=== PATIENT | female | born 1980 | race Caucasian/White ===

== ENCOUNTER 2020-12-31 21:16 | Emergency (ER) | payer MEDICAID, SELFPAY ==
[2020-12-31 23:19] LABS: Bilirubin Neg (Negative); Blood, Urine 250 (Negative); Clarity Clear (Clear); Glucose, Urine (Dipstick) Normal (Negative); Ketone, Urine Negative (Negative); Leukocyte 25 (Negative); Nitrite Negative (Negative); Protein, Urine (Dipstick) Negative (Neg-Trace); Urobilinogen Normal mg/dL (Less than 2)
[2020-12-31 23:25] LABS: #Basophils 0.1 10x3/uL (0.0-0.2); #Eosinphils 0.2 10x3/uL (0.0-0.5); #Monocytes 0.7 10x3/uL (0.0-1.1); #Neutrophils 5.4 10x3/uL (1.5-8.4); %Basophils 0.5 % (0.0-2.0); %Eosinophils 2.5 % (0.0-6.0); %Lymphocytes 33.9 % (18.0-47.0); %Neutrophils 55.9 % (40.0-75.0); Hemoglobin 13.5 g/dL (12.0-15.5); Mean Corpuscular HGB CONC 34.3 g/dL (32.0-36.0); Mean Corpuscular Hemoglobin 29.5 pg (27.0-33.0); Mean Corpuscular Volume 86.2 fl (81.6-98.3); Mean Platelet Volume 9.3 fl (7.4-10.4); Platelet Count 396 10x3/uL (150-450); RBC Distribution Width 12.4 % (11.5-14.5); Red Blood Cell (RBC) Count 4.57 10x6/uL (3.90-5.03); White Blood Cell (WBC) Count 9.6 10x3/uL (3.5-10.5)
[2020-12-31 23:26] LABS: Bacteria/HPF 2+ HPF (None Seen); Mucous/LPF Rare LPF (<2+); Squamous Epithelial 0-3 HPF (0-3); WBC/HPF 0-3 HPF (0-3)
== END 2021-01-01 01:25 | disposition home or self-care (01) ==
LOC: CSHERS 21:16
DX: O20.0 Threatened abortion (principal); O09.521 Supervision of elderly multigravida, first trimester; Z3A.01 Less than 8 weeks gestation of pregnancy
CPT/HCPCS: 76856; 81003; 81015; 84702; 85025; 86900; 86901; 87086

== ENCOUNTER 2022-06-26 14:15 | Outpatient (CLI) | payer OTHER | END 2022-06-26 14:16 | disposition home or self-care (01) | LOC: CSHULT 14:15 | PROVIDERS: ATTEND Family Medicine | DX: Z34.82 Encounter for supervision of other normal pregnancy, second trimester (principal); Z3A.22 22 weeks gestation of pregnancy | CPT/HCPCS: 76805 ==

== ENCOUNTER 2022-09-30 05:24 | Inpatient (IN) | payer MEDICAID, OTHER ==
[2022-09-29 12:40] LABS: Hematocrit 32.6 % (34.9-44.5); Hemoglobin 11.2 g/dL (12.0-15.5); Platelet Count 292 10x3/uL (150-450)
[2022-09-29 13:15] LABS: Syphilis Antibody Nonreactive (Nonreactive); Syphilis Antibody Index 0.08 S/CO (<1.00 Non-Reactive)
[2022-09-29 13:16] LABS: HBSAg Index 0.18 S/CO (0-0.99); Hep B Surf Ag Non-Reactive S/CO (NonReactive)
[2022-09-30] MEDS ORDERED: Bicitra 30 ML UDCUP PO PRN (05:36)
[2022-09-30] MEDS ORDERED: hydrALAZINE 20 MG/ML VIAL SLOW IVP PRN ×2 (05:36→11:44)
[2022-09-30] MEDS ORDERED: Carboprost 250 MCG/ML AMP IM PRN (05:36)
[2022-09-30] MEDS ORDERED: Ondansetron PF 4 MG/2 ML Vial IVP PRN ×3 (05:36→11:44)
[2022-09-30] MEDS ORDERED: Promethazine HCl 25 MG/ML VIAL IM PRN ×3 (05:36→11:44)
[2022-09-30] MEDS ORDERED: CEFAZOLIN 2 GM in Sodium Chloride 0.9% 100 ML IVPB SCH (05:36)
[2022-09-30] MEDS ORDERED: Diphenoxylate HCl/Atropine Tablet PO PRN (05:36)
[2022-09-30] MEDS ORDERED: Famotidine/PF 20 mg/2ml Vial SLOW IVP PRN (05:36)
[2022-09-30] MEDS ORDERED: Tranexamic Acid 1,000 MG/10 ML VIAL IVP PRN (05:36)
[2022-09-30] MEDS ORDERED: Misoprostol 200 MCG TAB PR PRN (05:36)
[2022-09-30] MEDS ORDERED: Methylergonovine 0.2 MG/ML VIAL IM PRN (05:36)
[2022-09-30] MEDS ORDERED: Lactated Ringer's 1,000 ML IV SCH (05:45)
[2022-09-30] MEDS ORDERED: NS w/ Oxytocin 30 units 500 ML IV SCH (05:45)
[2022-09-30 06:35] VITALS: BMI 24.1
[2022-09-30] MEDS ORDERED: Morphine PF 10 MG/10 ML VIAL ONE (06:58)
[2022-09-30] MEDS ORDERED: Ondansetron PF 4 MG/2 ML Vial ONE (06:59)
[2022-09-30] MEDS ORDERED: Oxytocin 10 UNITS/ML VIAL ONE ×2 (06:59→08:06)
[2022-09-30] MEDS ORDERED: Dexamethasone 4 mg/ml Vial ONE (06:59)
[2022-09-30] MEDS ORDERED: fentaNYL 50 mcg/mL 1 mL Vial ONE (06:59)
[2022-09-30] MEDS ORDERED: Phenylephrine 10 MG/ML VIAL ONE (06:59)
[2022-09-30] MEDS ORDERED: Ondansetron HCl/PF 4 MG/2 ML Vial IVP PRN (07:21)
[2022-09-30] MEDS ORDERED: Naloxone HCl 0.4 mg/ml Vial IV PRN (07:21)
[2022-09-30] MEDS ORDERED: Moisturizing Cream (Eucerin) 113 GM JAR TOP PRN (07:21)
[2022-09-30] MEDS ORDERED: Meperidine HCl/PF 25 MG/ML VIAL SLOW IVP PRN (07:21)
[2022-09-30] MEDS ORDERED: Ketorolac Tromethamine 30 MG/ML VIAL IVP PRN (07:21)
[2022-09-30] MEDS ORDERED: Naloxone HCl 0.4 mg/ml Vial IVP PRN ×2 (07:21)
[2022-09-30] MEDS ORDERED: Fentanyl 100 MCG/2 ML VIAL SLOW IVP PRN (07:21)
[2022-09-30] MEDS ORDERED: Promethazine HCl 25 MG SUPP PR PRN (07:21)
[2022-09-30] MEDS ORDERED: HYDROmorphone 2 MG/ML VIAL SLOW IVP PRN (07:21)
[2022-09-30] MEDS ORDERED: Communication Order-Pharmacy FS SCH (07:30)
[2022-09-30] MEDS ORDERED: Ketorolac Tromethamine 30 MG/ML VIAL IVP SCH ×2 (07:30→23:00)
[2022-09-30] MEDS ORDERED: Ketorolac Tromethamine 30 MG/ML VIAL ONE (10:41)
[2022-09-30] MEDS ORDERED: Bisacodyl 10 MG SUPP PR PRN (11:44)
[2022-09-30] MEDS ORDERED: Boostrix 0.5 ML (Tdap) VIAL (>/=7 yrs of age) IM ONE (11:44)
[2022-09-30] MEDS ORDERED: Lanolin Ointment 7 GM TUBE TOP PRN (11:44)
[2022-09-30] MEDS ORDERED: Docusate 100 MG CAP PO SCH (12:00)
[2022-09-30] MEDS ORDERED: Prenatal Vitamin 1 TAB PO SCH (12:00)
[2022-09-30] MEDS ORDERED: Ferrous Sulfate 325 MG TAB PO SCH (12:00)
[2022-09-30] MEDS: diphenhydrAMINE 50 MG/ML VIAL IVP PRN ×3 (12:25→21:30)
[2022-09-30] MEDS: Ketorolac Tromethamine 30 MG/ML VIAL IVP SCH (17:00)
[2022-09-30] MEDS: Ferrous Sulfate 325 MG TAB PO SCH (21:03)
[2022-09-30] MEDS: Docusate 100 MG CAP PO SCH (21:03)
[2022-10-01] MEDS: diphenhydrAMINE 25 MG CAP PO PRN ×2 (03:23→23:34)
[2022-10-01] MEDS: HYDROcodone/Acetaminophen 5/325 mg Tablet PO PRN ×5 (03:27→20:23)
[2022-10-01 03:31] LABS: Hematocrit 26.8 % (34.9-44.5); Hemoglobin 9.1 g/dL (12.0-15.5); Mean Corpuscular Hemoglobin 30.4 pg (27.0-33.0); Mean Corpuscular Volume 89.6 fl (81.6-98.3); Mean Platelet Volume 10.9 fl (7.4-10.4); Platelet Count 262 10x3/uL (150-450); RBC Distribution Width 13.3 % (11.5-14.5); Red Blood Cell (RBC) Count 2.99 10x6/uL (3.90-5.03)
[2022-10-01] MEDS: Ketorolac Tromethamine 30 MG/ML VIAL IVP SCH (04:48)
[2022-10-01] MEDS: Ibuprofen 800 MG TAB PO SCH ×3 (06:14→21:56)
[2022-10-01] MEDS: Ferrous Sulfate 325 MG TAB PO SCH ×2 (08:09→21:57)
[2022-10-01] MEDS: Docusate 100 MG CAP PO SCH ×2 (08:09→20:22)
[2022-10-01] MEDS: Prenatal Vitamin 1 TAB PO SCH (08:09)
[2022-10-01] MEDS ORDERED: Ibuprofen 800 MG TAB PO SCH (14:00)
[2022-10-01] MEDS: Simethicone Chewable 80 MG TAB PO PRN (23:34)
[2022-10-02] MEDS: HYDROcodone/Acetaminophen 5/325 mg Tablet PO PRN ×4 (03:49→20:20)
[2022-10-02] MEDS: Ibuprofen 800 MG TAB PO SCH ×3 (05:29→21:23)
[2022-10-02] MEDS: Docusate 100 MG CAP PO SCH ×2 (08:27→20:20)
[2022-10-02] MEDS: Prenatal Vitamin 1 TAB PO SCH (08:27)
[2022-10-02] MEDS: Ferrous Sulfate 325 MG TAB PO SCH ×2 (08:28→20:20)
[2022-10-02] MEDS: Simethicone Chewable 80 MG TAB PO PRN (21:23)
[2022-10-03] MEDS: Ibuprofen 800 MG TAB PO SCH (06:16)
[2022-10-03] MEDS: HYDROcodone/Acetaminophen 5/325 mg Tablet PO PRN ×2 (06:23→10:38)
[2022-10-03] MEDS: Ferrous Sulfate 325 MG TAB PO SCH (08:33)
[2022-10-03] MEDS: Prenatal Vitamin 1 TAB PO SCH (08:33)
[2022-10-03] MEDS: Docusate 100 MG CAP PO SCH (08:33)
[2022-10-03 08:50] VITALS: BP 115/54; TEMP 98
== END 2022-10-03 13:10 | disposition home or self-care (01) | DRG 788 ==
LOC: CSHLD 05:24 → CSHPP 11:00
PROVIDERS: ADMIT Family Medicine; ATTEND Family Medicine
PROC: 10D00Z1 Extraction of Products of Conception, Low, Open Approach (ICD-10-PCS; principal; 2022-09-30)
PROC: 3E033VJ Introduction of Other Hormone into Peripheral Vein, Percutaneous Approach (ICD-10-PCS; 2022-09-30)
DX: O44.43 Low lying placenta NOS or without hemorrhage, third trimester (principal); Z3A.36 36 weeks gestation of pregnancy; Z37.0 Single live birth
CPT/HCPCS: 36415; 51702; 85014; 85018; 85027; 85049; 86780; 86850; 86900; 86901; 87340; J1100; J1200; J1885; J2274; J2370; J2405; J2590; J3010; J3490; S0028